=== PATIENT | female | born 1990 | race Hispanic/Latino ===

== ENCOUNTER 2019-11-14 15:47 | Emergency (ER) | payer SELFPAY ==
[2019-11-14 16:01] VITALS: BP 133/87
--- NOTE | 2019-11-14 16:49 | Emergency Department Report ---
ED ENT HPI - General Chief complaint: Dental/Oral Stated complaint: INFECTED TOOTH Time Seen by Provider: 11/14/19 16:45 Source: patient Mode of arrival: Ambulatory Limitations: No Limitations - History of Present Illness Initial comments: pt is a 29 yo female who presents to the ED with c/o left lower dental pain that began two days ago. has associated left sided facial swelling. states that she has a cracked tooth on that side for approximately 9 months. has not seen a dentist in a year. no fever, no vomiting, diarrhea. she denies any difficulty t olerating secretions. no pmhx. no allergies to meds. LNMP: 10/18/2019 - Related Data Previous Rx's Medication Instructions Recorded Last Taken Type Clindamycin [Clindamycin CAP] 450 mg PO TID 7 Days #63 capsule 11/14/19 Unknown Rx Ibuprofen [Motrin 600 MG tab] 600 mg PO Q8H PRN #14 tablet 11/14/19 Unknown Rx Allergies Allergy/AdvReac Type Severity Reaction Status Date / Time No Known Allergies Allergy Unverified 11/14/19 15:55 ED Dental HPI - General Chief complaint: Dental/Oral Stated complaint: INFECTED TOOTH Time Seen by Provider: 11/14/19 16:45 Source: patient Mode of arrival: Ambulatory Limitations: No Limitations - Related Data Previous Rx's Medication Instructions Recorded Last Taken Type Clindamycin [Clindamycin CAP] 450 mg PO TID 7 Days #63 capsule 11/14/19 Unknown Rx Ibuprofen [Motrin 600 MG tab] 600 mg PO Q8H PRN #14 tablet 11/14/19 Unknown Rx Allergies Allergy/AdvReac Type Severity Reaction Status Date / Time No Known Allergies Allergy Unverified 11/14/19 15:55 ED Review of Systems ROS: Stated complaint: INFECTED TOOTH Other details as noted in HPI Comment: All other systems reviewed and negative ED Past Medical Hx - Past Medical History Previous Medical History?: No - Surgical History Past Surgical History?: Yes Additional Surgical History: c-sectionx2 - Medications Home Medications: Home Medications Medication Instructions Recorded Confirmed Last Taken Type Clindamycin [Clindamycin CAP] 450 mg PO TID 7 Days #63 capsule 11/14/19 Unknown Rx Ibuprofen [Motrin 600 MG tab] 600 mg PO Q8H PRN #14 tablet 11/14/19 Unknown Rx ED Physical Exam - General Limitations: No Limitations General appearance: alert, in no apparent distress - Head Head exam: Present: atraumatic, normocephalic - Eye Eye exam: Present: normal appearance - ENT ENT exam: Present: mucous membranes moist, other (area to the left lower gum line with induration, left lower jaw swelling, uvula is midline, no uvular edema, no uvular deviation) - Respiratory Respiratory exam: Present: normal lung sounds bilaterally. Absent: respiratory distress, wheezes, rales, rhonchi, stridor, chest wall tenderness, accessory muscle use, decreased breath sounds, prolonged expiratory - Cardiovascular Cardiovascular Exam: Present: normal rhythm, tachycardia (very mild), normal heart sounds. Absent: systolic murmur, diastolic murmur, rubs, gallop - Neurological Exam Neurological exam: Present: alert, oriented X3 - Psychiatric Psychiatric exam: Present: normal affect, normal mood - Skin Skin exam: Present: warm, dry, intact ED Course Vital Signs 11/14/19 11/14/19 15:50 16:49 Temperature 100.0 F H 98.7 F Pulse Rate 101 H Respiratory 16 Rate Blood Pressure 133/87 O2 Sat by Pulse 100 100 Oximetry ED Medical Decision Making - Medical Decision Making pt is a 29 yo female who presents to the ED with c/o left lower dental pain that began two days ago. has associated left sided facial swelling. states that she has a cracked tooth on that side for approximately 9 months. has not seen a dentist in a year. no fever, no vomiting, diarrhea. she denies any difficulty tolerating secretions. no pmhx. no allergies to meds. LNMP: 10/18/2019. VSS. on exam: area to the left lower gum line with induration, left lower jaw swelling, uvula is midline, no uvular edema, no uvular deviation. Examination consistent with dental abscess and facial cellulitis. Patient given prescription for clindamycin and ibuprofen. advised pt to please take medication as prescribed. follow up with a dentist in the next 3 days. return to the emergency room for any new or worsening symptoms. - Differential Diagnosis dental abscess, dental carries, mandibular abscess, sialoadenitis Critical care attestation.: If time is entered above; I have spent that time in minutes in the direct care of this critically ill patient, excluding procedure time. ED Disposition Clinical Impression: Dental abscess Disposition: TO HOME OR SELFCARE Is pt being admited?: No Does the pt Need Aspirin: No Condition: Stable Instructions: Dental Abscess (ED) Additional Instructions: please take medication as prescribed. follow up with a dentist in the next 3 days. return to the emergency room for any new or worsening symptoms. Prescriptions: Clindamycin [Clindamycin CAP] 450 mg PO TID 7 Days #63 capsule Ibuprofen [Motrin 600 MG tab] 600 mg PO Q8H PRN #14 tablet PRN Reason: Pain Referrals: [facility] [Outside] - 2-3 Days Forms: Work/School Release Form(ED) Time of Disposition: 16:51 Print Language: PERSIAN
== END 2019-11-14 17:25 | disposition left against medical advice (07) ==
LOC: ED 15:47
DX: K04.7 Periapical abscess without sinus (principal); Z79.899 Other long term (current) drug therapy; Z98.890 Other specified postprocedural states
CPT/HCPCS: 99281

== ENCOUNTER 2021-06-25 06:38 | Emergency (ER) | payer SELFPAY | END 2021-06-25 08:56 | disposition left against medical advice (07) | LOC: ED 06:38 | DX: R10.9 Unspecified abdominal pain (principal); Z53.21 Procedure and treatment not carried out due to patient leaving prior to being seen by health care provider ==